=== PATIENT | male | born 1980 | race African-American/Black ===

== ENCOUNTER 2017-10-05 20:11 | Emergency (ER) | payer OTHER ==
[2017-10-05 20:25] LABS: AGAP ISTAT 20 mmol/L (6-14); BUN ISTAT 19 mg/dL (8-26); CHLORIDE ISTAT 98 mmol/L (98-110); CREATININE ISTAT 1.3 mg/dL (0.5-1.4); GLUCOSE ISTAT 170 mg/dL (70-99); HEMATOCRIT ISTAT 55 % (37-52); HEMOGLOBIN ISTAT 18.7 g/dL (14-18); ION CA ISTAT 1.02 mmol/L (1.13-1.32); POTASSIUM ISTAT 4.5 mmol/L (3.5-5.0); SODIUM ISTAT 136 mmol/L (135-145); TOT CO2 ISTAT 24 mmol/L (23-32)
[2017-10-05] MEDS ORDERED: FUROSEMIDE 20 MG/2 ML VIAL. ×2 (20:31)
[2017-10-05] MEDS: FUROSEMIDE 40 MG/4 ML VIAL. IVP ×2 (20:34)
[2017-10-05] MEDS ORDERED: ONDANSETRON PF 4 MG/2 ML VIAL. ×2 (20:44)
[2017-10-05 20:49] LABS: BASO # 0.1 x10^3/uL (0.0-0.2); BASO % 1 % (0-3); EOS % 0 % (0-3); HEMATOCRIT 45.4 % (39.0-53.0); HEMOGLOBIN 14.7 g/dL (13.0-17.5); LYMPH # 1.2 x10^3/uL (1.0-4.8); LYMPH % 6 % (24-48); MEAN CORPUSCULAR HEMOGLOBIN 27 pg (25-35); MEAN CORPUSCULAR HGB CONC 32 g/dL (31-37); MEAN CORPUSCULAR VOLUME 84 fL (79-100); MONO # 0.5 x10^3/uL (0.0-1.1); MONO % 3 % (0-9); NEUT # 18.5 x10^3uL (1.8-7.7); NEUT % 91 % (31-73); PLATELET COUNT 332 x10^3/uL (140-400); RED BLOOD COUNT 5.41 x10^6/uL (4.30-5.70); RED CELL DISTRIBUTION WIDTH 18.7 % (11.5-14.5); WHITE BLOOD COUNT 20.4 x10^3/uL (4.0-11.0)
[2017-10-05 20:50] LABS: ADD MAN DIFF? YES
[2017-10-05] MEDS: ONDANSETRON PF 4 MG/2 ML VIAL. IV ×4 (20:50→21:15)
[2017-10-05] MEDS: VANCOMYCIN 1GM IVPB FOR OMNI 250 ML IV ×2 (21:15)
[2017-10-05 21:16] LABS: INFLUENZA A PATIENT NEGATIVE (NEGATIVE); INFLUENZA B PATIENT NEGATIVE (NEGATIVE); OBC FLU VALID
[2017-10-05 21:17] LABS: ANION GAP 15 (6-14); BLOOD UREA NITROGEN 18 mg/dL (8-26); BUN/CREATININE RATIO 12 (6-20); CALCIUM 9.4 mg/dL (8.5-10.1); CARBON DIOXIDE 27 mmol/L (21-32); CHLORIDE 96 mmol/L (98-107); CREATININE 1.5 mg/dL (0.7-1.3); GFR 64.1; GLUCOSE 130 mg/dL (70-99); POTASSIUM 4.1 mmol/L (3.5-5.1); SODIUM 138 mmol/L (136-145)
[2017-10-05 21:22] LABS: ALBUMIN 3.9 g/dL (3.4-5.0); ALBUMIN/GLOBULIN RATIO 0.8 (1.0-1.7); ALK PHOS 87 U/L (46-116); ALT (SGPT) 44 U/L (16-63); AST (SGOT) 42 U/L (15-37); TOTAL BILIRUBIN 0.5 mg/dL (0.2-1.0); TOTAL PROTEIN 8.7 g/dL (6.4-8.2)
[2017-10-05 21:30] LABS: TROPONINI 0.266 ng/mL (0.000-0.055)
[2017-10-05 21:31] LABS: CKMB INDEX 0.7 % (0-4); CKMB MASS 3.8 ng/mL (0.0-3.6); CREATINE KINASE 526 U/L (39-308)
[2017-10-05 21:31] LABS: NT-PRO BNP 5890 pg/mL (0-124)
[2017-10-05] MEDS: ACETAMINOPHEN 500 MG TABLET PO ×2 (21:36)
[2017-10-05 21:43] LABS: % BANDS 18 % (0-9); % BASOS 1 % (0-3); % EOS 1 % (0-5); % LYMPHS 7 % (24-48); % METAS 1 % (0-0); % MONOS 3 % (0-10); % SEGS 69 % (35-66)
[2017-10-05 21:45] LABS: PLT ESTIMATE ADEQUATE (ADEQUATE); TOXIC GRANULATION SLIGHT
[2017-10-05] MEDS: LABETALOL 20 MG/4 ML DISP.SYRIN. IVP ×2 (21:46)
[2017-10-05] MEDS ORDERED: SUCCINYLCHOLINE 200 MG/10 ML VIAL. ×2 (22:23)
[2017-10-05] MEDS ORDERED: MIDAZOLAM HCL/PF 5 MG/5 ML VIAL. ×2 (22:23)
[2017-10-05] MEDS ORDERED: KETAMINE HCL 500 MG/10 ML VIAL. ×2 (22:23)
[2017-10-05] MEDS ORDERED: EPINEPHrine SYRINGE 1 MG/10 ML SYRINGE (23:00)
[2017-10-05] MEDS ORDERED: EPINEPHrine VIAL 30 MG/30 ML VIAL (23:00)
[2017-10-06 07:40] LABS: TROPONIN BY ISTAT 0.12 ng/ml (<0.08)
== END 2017-10-05 22:37 | disposition expired ==
LOC: ER 10-06 00:20
DX: J81.1 Chronic pulmonary edema (principal); R09.02 Hypoxemia; R50.9 Fever, unspecified; R06.03 Acute respiratory distress; R91.8 Other nonspecific abnormal finding of lung field; E78.00 Pure hypercholesterolemia, unspecified; F32.9 Major depressive disorder, single episode, unspecified; F41.9 Anxiety disorder, unspecified; J44.9 Chronic obstructive pulmonary disease, unspecified; I50.9 Heart failure, unspecified; F12.10 Cannabis abuse, uncomplicated; F15.10 Other stimulant abuse, uncomplicated; Z88.8 Allergy status to other drugs, medicaments and biological substances
CPT/HCPCS: 31500; 36415; 36600; 71045; 80047; 80053; 82553; 83880; 84484; 85007; 85025; 87040; 87804; 87804-59; 94660; 96365; 96368; 96375; 99291-25; J0171; J0690; J1940; J2060; J2405; J3370; J3490